=== PATIENT | female | born 2000 | race Caucasian/White ===

== ENCOUNTER → 2020-04-09 14:50 | Outpatient (CLI) | payer OTHER, SELFPAY ==
[2020-04-10 07:42] LABS: COVID19 Sendout Not Detected (Not Detect)
== END ==
PROVIDERS: Visit Provider Physician Assistant
DX: Z11.59 Encounter for screening for other viral diseases (principal)
CPT/HCPCS: 87635

== ENCOUNTER 2020-04-12 12:38 | Day surgery (SDC) | payer OTHER, SELFPAY ==
[2020-04-12] VITALS (10 sets, daily range): BP systolic 110–138; BP diastolic 65–91; PULSE 64–96; RESP 11–16; TEMP 36.2–36.6; O2SAT 98–100; BMI 27.5
[2020-04-12] MEDS: LACTATED RINGERS 1,000 ML 42 ML IV (13:03)
[2020-04-12] MEDS: ACETAMINOPHEN 325 MG TABLET 975 MG PO (13:04)
--- NOTE | 2020-04-12 13:41 | PM.PREOP ---
Pre-operative Note COVID-19 COVID-19 status: Negative Interval Note History & Physical reviewed/Exam performed by Physician: Yes Changes to H&P: No
--- NOTE | 2020-04-12 13:41 | PM.HP.1 ---
History of Present Illness History of Present Illness Date Patient Seen: 04/12/20 Time Patient Seen: 13:42 Chief complaint: SDC Narrative: 19-year-old female presents with a chronic history of tonsil stones and throat irritation, unresponsive to medical therapy. He elected proceed with tonsillectomy and possible adenoidectomy. Patient History Family & Social History Social History: household members friend(s) Tobacco & Substance use: Tobacco type e-cigarettes Smoking Status Current every day smoker alcohol intake never Substance Use Type does not use Meds Home Medications and Allergies Home Medications Medication Instructions Recorded Confirmed Type etonogestrel [Nexplanon] 68 mg SUBDERMAL DAILY 04/12/20 04/12/20 History Allergies Allergy/AdvReac Type Severity Reaction Status Date / Time cefdinir Allergy Hives Verified 04/12/20 13:06 phenazopyridine Allergy Verified 04/12/20 13:06 [From Pyridium] Review of Systems Review of Systems ROS: Yes All systems reviewed with the patient and are negative except as otherwise documented Exam Vital Signs (past 8 hours): - 04/12/20 13:07 Temperature 97.8 F Pulse Rate 83 Respiratory Rate 16 Blood Pressure 110/71 Pulse Oximetry 99 Oxygen Delivery Method Room Air Narrative Exam Narrative: Well-developed well-nourished female. Two to 3+ tonsils with tonsil stones. Heart regular rate and rhythm without murmur, lungs clear to auscultation bilaterally Assessment & Plan Assessment & Plan narrative: 1. Chronic tonsillitis 2. Tonsil stones 3. Throat pain Following discussion of the material risks benefits complications and alternatives, the patient elected to proceed with tonsillectomy and possible adenoidectomy.
--- NOTE | 2020-04-12 13:48 | PM.HP.1 ---
History of Present Illness History of Present Illness Chief complaint: [facility] [place] Narrative: 19-year-old female presents with a chronic history of tonsil stones and throat irritation, unresponsive to medical therapy. He elected proceed with tonsillectomy and possible adenoidectomy. Patient History Family & Social History Social History: household members friend(s) Tobacco & Substance use: Tobacco type e-cigarettes Smoking Status Current every day smoker alcohol intake never Substance Use Type does not use Meds Home Medications and Allergies Home Medications Medication Instructions Recorded Confirmed Type etonogestrel [Nexplanon] 68 mg SUBDERMAL DAILY 04/12/20 04/12/20 History Allergies Allergy/AdvReac Type Severity Reaction Status Date / Time cefdinir Allergy Hives Verified 04/12/20 13:06 phenazopyridine Allergy Verified 04/12/20 13:06 [From Pyridium] Review of Systems Review of Systems ROS: Yes All systems reviewed with the patient and are negative except as otherwise documented Exam Vital Signs (past 8 hours): - 04/12/20 13:07 Temperature 97.8 F Pulse Rate 83 Respiratory Rate 16 Blood Pressure 110/71 Pulse Oximetry 99 Oxygen Delivery Method Room Air Narrative Exam Narrative: Well-developed well-nourished female. Heart regular rhythm without murmur, lungs clear to auscultation bilaterally Assessment & Plan Assessment & Plan narrative: 1. Left peritonsillar abscess, multiply recurrence 2. Chronic tonsillitis 3. Throat pain
--- NOTE | 2020-04-12 13:56 | SUR.OPER ---
Supine on padded OR bed, head on pillow, arm padded and tucked at side, legs uncrossed, safety belt at thigh, tape over blanket over lower legs .
[2020-04-12] MEDS: LIDOCAINE 1% W/EPI 20 ML INJ (13:59)
[2020-04-12] MEDS: BUPIVACAINE 0.25% W/ EPI 30 ML VIAL INJ (13:59)
--- NOTE | 2020-04-12 14:21 | PM.OP.1 ---
Operative Date/Time/Diagnoses Date of procedure: 04/12/20 Time of procedure: 14:21 Pre-op diagnosis: Chronic tonsillitis with tonsilliths, throat pain Post-op diagnosis: same Procedure & Clinicians Procedure: Tonsillectomy Same procedure as scheduled: Yes Indications: 19-year-old female with the above diagnosis presents for the above procedure. Following discussion of the material risks benefits complications and alternatives, she elected to proceed. Surgeon: Joey Jarrett Click Yes if Unassisted: Yes Anesthesia Type: General and Local Operative Notes Findings: Intact palate single uvula 3+ tonsils with mild inflammation, no significant adenoid tissue Closure Type: not applicable Specimen(s): none sent Estimated Blood Loss (mL): 5 Procedure in detail: Following identification and confirmation of consent the patient was brought to the operating room suite and placed in the supine position. General endotracheal anesthesia was administered. A head wrap, shoulder roll, and mouth gag were placed and a red rubber catheter was inserted through the nostril and out the mouth to retract the soft palate. There was no significant adenoid tissue. The left tonsil was retracted medially and suction electrocautery on a setting of 30 was used to dissect the tonsil in a subcapsular plane, followed by hemostasis with the same. This process was repeated on the right side with identical findings. The tonsillar fossae were superficially infiltrated bilaterally with a 1:1 mixture of 1% lidocaine 1 100,000 epinephrine and 0.25% Marcaine 1 to [id number] epinephrine. Mouth gag and rubber catheter were removed and the patient was extubated in the operating room and taken to the recovery room in stable condition without known complication. Complications: none Post-operative Condition: stable Disposition: same day surgery Plan for aftercare: DC home, follow-up in 3-4 weeks if desired
[2020-04-12] MEDS: ONDANSETRON 4 MG/2 ML INJ IV (14:27)
[2020-04-12] MEDS: fentaNYL 100 MCG/2 ML INJ IV (14:27)
--- NOTE | 2020-04-12 14:27 | P.HP_ITS ---
History of Present Illness History of Present Illness Chief complaint: [facility] [place] Narrative: 19-year-old female presents with a chronic history of tonsil stones and throat irritation, unresponsive to medical therapy. She elected proceed with tonsillectomy and possible adenoidectomy. Patient History Family & Social History Social History: household members friend(s) Tobacco & Substance use: Tobacco type e-cigarettes Smoking Status Current every day smoker alcohol intake never Substance Use Type does not use Meds Home Medications and Allergies Home Medications Medication Instructions Recorded Confirmed Type etonogestrel [Nexplanon] 68 mg SUBDERMAL DAILY 04/12/20 04/12/20 History Allergies Allergy/AdvReac Type Severity Reaction Status Date / Time cefdinir Allergy Hives Verified 04/12/20 13:06 phenazopyridine Allergy Verified 04/12/20 13:06 [From Pyridium] Review of Systems Review of Systems ROS: Yes All systems reviewed with the patient and are negative except as otherwise documented Exam Vital Signs (past 8 hours): - 04/12/20 13:07 Temperature 97.8 F Pulse Rate 83 Respiratory Rate 16 Blood Pressure 110/71 Pulse Oximetry 99 Oxygen Delivery Method Room Air Narrative Exam Narrative: A well-developed well-nourished female, tonsils 2 to 3+ with stones, heart regular rate and rhythm without murmur, lungs clear to auscultation bilaterally Assessment & Plan Assessment & Plan narrative: 1. Chronic tonsillitis 2. Tonsil stones, 3. Throat pain Following discussion of the material risks benefits complications and alternatives, the patient elected to proceed with tonsillectomy.
[2020-04-12] MEDS: OXYCODONE IR 5 MG TABLET PO ×2 (15:26→16:07)
--- NOTE | 2020-04-12 15:34 | SUR.PHASEII ---
Addendum entered by Fauzia Arvizu R.N. 04/12/20 15:35: no bleeding, nausea, vomiting or spitting up of blood Original Note: Pt medicated for pain 03/09. She is emotional, not tearful. taking ice chips well. Denies nausea. Friend, Max, at bedside. She wants to get dressed. IV access capped, clothes given. Plan: reevaluate pain level at 1600 and medicate if needed prior to discharge.
[2020-04-12] MEDS: BENZOCAINE/MENTHOL 1 LOZ PKT 1 EACH PO (16:07)
--- NOTE | 2020-04-12 17:21 | SUR.PHASEII ---
[id number] Discharged to home with friend. States that pain level is improving, able to swallow without difficulty; no oral bleeding, no c/o nausea. Has eaten two large cups of ice, third cup given for discharge. Facial grimace, no moaning or crying. No questions or concerns.
== END 2020-04-12 16:26 | disposition home or self-care (01) ==
PROVIDERS: Referring Provider Otolaryngology; Visit Provider Otolaryngology
PROC: (CPT 42826; principal; 2020-04-12 13:45)
DX: J35.01 Chronic tonsillitis (principal); Z72.0 Tobacco use
CPT/HCPCS: 42826; J1100; J2250; J2405; J3010

== ENCOUNTER 2021-10-15 15:54 | Emergency (ER) | payer OTHER, SELFPAY ==
[2021-10-15 15:57] VITALS: TEMP 36.7
[2021-10-15 16:54] LABS: COVID19 -Nasal RAPID Negative (Negative)
--- NOTE | 2021-10-15 18:29 | DI.RAD.S_ITS ---
PROCEDURE: XR CHEST 2V INDICATIONS: cough, chest pain, congestion TECHNIQUE: 2 views of the chest were acquired. COMPARISON: None. FINDINGS: Surgical changes and devices: None. Lungs and pleura: Lungs are clear. No pleural effusions or pneumothorax. Mediastinum: Mediastinal contours are normal. Heart size is normal. Bones and chest wall: No suspicious bony abnormalities. Soft tissues appear unremarkable. IMPRESSION: No acute cardiopulmonary abnormality. Dictated by: Scar Perez M.D. on 10/15/2021 at 19:07 Approved by: Scar Perez M.D. on 10/15/2021 at 19:11
--- NOTE | 2021-10-15 18:54 | ED.URI ---
HPI - URI/Sore Throat <Jos Knowles PA-C - Last Filed: 10/15/21 18:59> General Chief Complaint: Upper Respiratory Symptoms Stated Complaint: BAD COUGH CHEST PAIN CONGESTION Time Seen by Provider: 10/15/21 17:18 Source: patient Mode of arrival: Ambulatory History of Present Illness HPI Narrative: Patient is a 21-year-old female who presents to the ED complaining of cough and upper respiratory symptoms that were going on for the last couple of days. She recently traveled from [place] and states that the symptoms started soon as after she got back from her trip. She denies denies any recent exposures is concerned for COVID or any other upper respiratory type symptoms in his presents for evaluation and treatment. She has tried [id number] Mucinex and it has helped some however his cough continues. She has also tried DayQuil which helps for a small amount of time and then it returns. No history of asthma or bronchitis or pneumonia no reported fever no reported chest pain no reported shortness of breath no nausea vomiting or diarrhea. Related Data Home Medications Medication Instructions Recorded Confirmed etonogestrel 68 mg subdermal 68 mg SUBDERMAL DAILY 04/12/20 04/12/20 implant (Nexplanon) Allergies Allergy/AdvReac Type Severity Reaction Status Date / Time cefdinir Allergy Hives Verified 04/12/20 13:06 phenazopyridine Allergy Verified 04/12/20 13:06 [From Pyridium] Review of Systems <Jos Knowles PA-C - Last Filed: 10/15/21 18:59> Review of Systems ROS Unobtainable: All systems reviewed & are unremarkable except as noted in HPI and below Constitutional Constitutional: Denies chills, Denies fatigue, Denies fever(s), Denies frequent falls, Denies lethargy and Denies weakness Eyes Eyes: Denies change in vision, Denies eye discharge, Denies irritation and Denies loss of vision ENT Ears, Nose, Mouth, and Throat: Denies change in voice, Denies dizziness, Reports nasal congestion, Denies neck pain, Denies sore throat and Denies throat swelling Cardiovascular Cardiovascular: Denies chest pain, Denies irregular heart rhythm, Denies lightheadedness, Denies palpitations, Denies dyspnea, Denies dyspnea on exertion and Denies orthopnea Respiratory Respiratory: Reports cough, Denies dyspnea, Denies dyspnea on exertion and Denies wheezing Gastrointestinal Gastrointestinal: Denies abdominal pain, Denies change in bowel habits, Denies diarrhea, Denies nausea and Denies vomiting Genitourinary Genitourinary: Denies hematuria, Denies flank pain, Denies urinary incontinence and Denies urinary urgency Musculoskeletal Musculoskeletal: Denies back pain, Denies muscle weakness, Denies neck pain, Denies numbness and Denies tingling Integumentary/Breasts Skin/Breast: Denies pruritus, Denies erythema, Denies rash and Denies wounds Neurologic Neurologic: Denies behavioral changes, Denies confusion, Denies dizziness, Denies frequent falls, Denies loss of vision, Denies numbness, Denies tingling and Denies weakness Psychiatric Psychiatric: Denies anxiety, Denies behavioral changes, Denies confusion, Denies depression, Denies homicidal ideation and Denies suicidal ideation Endocrine Endocrine: Denies fatigue, Denies flushing and Denies palpitations Hematologic/Lymphatic Hematologic/Lymphatic: Denies easy bruising Allergic/Immunologic Allergic/Immunologic: Denies urticaria, Denies throat swelling and Denies wheezing Patient History <Jos Knowles PA-C - Last Filed: 10/15/21 18:59> Social History household members: friend(s) Smoking Status: Current every day smoker alcohol intake: never Smoking Status: Current every day smoker Substance Use Type: does not use Exam <Jos Knowles PA-C - Last Filed: 10/15/21 18:59> Initial Vital Signs Initial Vital Signs: Vital Signs Temperature 98.0 F 10/15/21 15:57 Const General: cooperative, healthy appearing, comfortable and well developed Nutritional Appearance: average body habitus [facility] Head: normal to inspection Ears: hearing grossly normal bilaterally, external ears normal and TM's normal bilaterally Nose: external nose normal, nares normal and nasal mucous membranes and turbinates normal Face and sinus: normal facial exam Mouth: oral mucosae normal, tongue normal, oropharynx normal and moist mucous membranes Teeth and gingiva: dentition normal Throat: posterior oropharynx normal, tonsils normal and uvula midline Eyes General: appearance normal, both eyes and all related structures Pupils: PERRL Resp Effort & Inspection: normal respiratory effort and able to speak in complete sentences Auscultation: clear to auscultation bilaterally Cardio Palpation: normal PMI Rate: regular rate Rhythm: regular rhythm <January Mooney DO - Last Filed: 10/16/21 18:34> Initial Vital Signs Initial Vital Signs: Vital Signs Temperature 98.0 F 10/15/21 15:57 Course <Jos Knowles PA-C - Last Filed: 10/15/21 18:59> Orders Ordered: ED Orders 10/15/21 16:26 COVID19 -Nasal swab/Pre-Proc Stat 10/15/21 18:29 Chest [XR chest 2V] Stat Vital Signs Vital signs: Vital Signs - 8 hr 10/15/21 15:57 Temperature 98.0 F <January Mooney DO - Last Filed: 10/16/21 18:34> Orders Ordered: ED Orders 10/15/21 16:26 COVID19 -Nasal swab/Pre-Proc Stat 10/15/21 18:29 Chest [XR chest 2V] Stat Vital Signs Vital signs: Vital Signs - 8 hr 10/15/21 15:57 Temperature 98.0 F MDM - URI/Sore Throat <Jos Knowles PA-C - Last Filed: 10/15/21 18:59> Differential Diagnosis Differential diagnosis: Likely upper respiratory infection Lab Data Labs: Lab Results 10/15/21 Range/Units 16:26 SARS-CoV-2 (PCR) Negative (Negative) [facility] Narrative Medical decision making narrative: Patient was evaluated today for cough. No evidence of any bronchitis or pneumonia were found on a chest x-ray or on exam. Based on her symptoms is likely upper respiratory an [id number] treatment and outpatient is likely going to correct her problem. I spoke with her about mucolytics as well as antihistamines and decongestants. She was agreeable and was discharged home <January Mooney DO - Last Filed: 10/16/21 18:34> Lab Data Labs: Lab Results 10/15/21 Range/Units 16:26 SARS-CoV-2 (PCR) Negative (Negative) Discharge Plan Departure Patient Disposition: Home Clinical Impression: Upper respiratory infection Instructions: DI for Viral Upper Respiratory Infection -- Adult Activity Restrictions/Additional Instructions: Your COVID test was negative today I would recommend that you take an antihistamine of your choice along with dextromethorphan [id number] as directed you can continue taking the Mucinex [id number] as directed and if he have no improvement over the next week I would follow-up with your PCP for continued treatment. Prescriptions: No Action Nexplanon 68 mg Implant 68 mg SUBDERMAL DAILY 0RF <January Mooney, - Last Filed: 10/16/21 18:34> Cosign ED Attending Cosisraature Attestation: I was present and available in the department. Chart reviewed by myself.
== END 2021-10-15 19:20 | disposition home or self-care (01) ==
PROVIDERS: Emergency Medicine; Emergency Provider Physician Assistant
DX: J06.9 Acute upper respiratory infection, unspecified (principal); F17.200 Nicotine dependence, unspecified, uncomplicated; Z20.822 Contact with and (suspected) exposure to COVID-19
CPT/HCPCS: 71046; 87635; 99283; C9803

== ENCOUNTER → 2022-08-20 10:41 | Outpatient (CLI) | payer OTHER, SELFPAY ==
[2022-08-20 11:33] LABS: Hematocrit 39.2 % (36-46); Hemoglobin 13.1 g/dL (12.0-16.0); Mean Corpuscular HGB Conc 33.5 % (30-36); Mean Corpuscular Hemoglobin 29.9 PG (26-34); Mean Corpuscular Volume 89.4 fL (80-100); Platelet Count 294 X10^3/uL (150-400); Red Blood Cell Count 4.39 X10^6/uL (4.0-5.2); Red Cell Distribution Width 12.6 % (11.6-14.8); White Blood Cell Count 4.4 X10^3/uL (4.5-11.0)
[2022-08-20 11:56] LABS: Chloride 102 mmol/L (98-107); HEMOLYSIS < 15 (0-50)
[2022-08-20 11:58] LABS: Alanine Aminotransferase 27 IU/L (<35); Albumin 4.4 g/dL (3.5-5.0); Albumin Globulin Ratio 1.5 (1.0-2.8); Alkaline Phosphatase 56 U/L (38-126); Aspartate Aminotransferase 26 IU/L (14-36); BUN Creatinine Ratio 12.8 (6-22); Bilirubin Total 0.4 mg/dL (0.2-1.3); Blood Urea Nitrogen 6 mg/dL (7-17); Carbon Dioxide 24 mmol/L (22-32); Estimated Glomerular Filt Rate > 60 mL/min (>60); Glucose 82 mg/dL (70-100); Potassium 4.3 mmol/L (3.4-5.1); Sodium 138 mmol/L (137-145); Total Protein 7.4 g/dL (6.3-8.2)
== END ==
PROVIDERS: PCP Student in an Organized Health Care Education/Training Program; Referring Provider Obstetrics & Gynecology; Visit Provider Obstetrics & Gynecology
DX: O02.1 Missed abortion (principal)
CPT/HCPCS: 80053; 85027; 86850; 86900; 86901